=== PATIENT | female | born 1975 | race Caucasian/White ===

== ENCOUNTER 2016-07-21 07:52 | Emergency (ER) | payer SELFPAY ==
[2016-07-21 08:06] VITALS: RESP 17; TEMP 97.2
[2016-07-21] MEDS ORDERED: NORMAL SALINE 10 ML SYRINGE FLUSH IVP PRN (08:11)
[2016-07-21] MEDS ORDERED: ONDANSETRON 4 MG/2 ML VIAL IVP ONE (08:11)
[2016-07-21] MEDS ORDERED: Sodium Chloride 0.9% 1,000 ML PRIMARY IV ONE (08:11)
[2016-07-21 08:48] LABS: BASOPHILS # (AUTO) 0.02 10*3/UL; BASOPHILS % (AUTO) 0.3 % (0-1); EOSINOPHILS % (AUTO) 3.3 % (0-8); HEMATOCRIT 38.5 % (37.0-47.0); HEMOGLOBIN 12.8 g/dL (12.0-16.0); IMM GRAN % (AUTO) 0.3 % (0-5); IMM GRAN# (AUTO) 0.02 10*3/UL; LYMPHOCYTES # (AUTO) 1.83 10*3/uL; LYMPHOCYTES % (AUTO) 26.6 % (10-50); MEAN CORPUSCULAR HEMOGLOBIN 30.7 PG (27-31); MEAN CORPUSCULAR HGB CONC 33.2 g/dL (33-37); MEAN PLATELET VOLUME 8.9 FL (7.4-12.2); MONOCYTES % (AUTO) 11.6 % (5-15); NEUTROPHILS # (AUTO) 3.98 10*3/UL; NEUTROPHILS % (AUTO) 57.9 % (50-80); RDW COEFFICIENT OF VARIATION 13.8 % (11.5-14.5); RED BLOOD COUNT 4.17 10^6/uL (4.20-5.40); WHITE BLOOD COUNT 6.88 10^3/uL (4.8-10.8)
[2016-07-21 08:49] LABS: PLATELET MORPHOLOGY COMMENT NORMAL MORPHOLOGY (NORM)
[2016-07-21 09:03] LABS: AMYLASE 34 U/L (30-110); ASPARTATE AMINO TRANSFERASE 18 IU/L (8-39); BILIRUBIN,TOTAL 0.4 mg/dL (0.3-1.2); BLOOD UREA NITROGEN 12 mg/dL (7-22); CALCIUM 8.7 mg/dL (8.7-10.7); CHLORIDE 108 meq/L (98-112); CREATININE 0.6 mg/dL (0.50-1.20); EST GLOMERULAR FILTRATION > 60 (>60 ml/min/1.73m(2)); GLUCOSE 83 mg/dL (78-110); POTASSIUM 3.9 meq/L (3.8-5.2); SODIUM 138 meq/L (135-145); TOTAL PROTEIN 6.4 g/dL (6.1-8.0)
--- NOTE | 2016-07-21 09:16 | PDOC ---
Abdomen/Flank HPI - General Chief Complaint: Abdomen Pain Stated Complaint: abdominal pain Date Seen by Provider: 07/21/16 Time Seen by Provider: 08:00 Source: POSITIVE: Patient Exam Limitations: POSITIVE: No limitations Nurse's Notes Reviewed & Considered: Yes - History of Present Illness Initial Comments: The patient is a 40-year-old female who presents to the emergency room with a 4 day history of periumbilical and lower abdominal pain. She states she has had some associated loose bowel movements. No vomiting. She last ate at 9 PM last night. She states she's not hungry. Last menstrual period was 24 June. No melena, hematochezia, hematemesis, dysuria or hematuria or known fevers. No history of abdominal surgery except for 2 previous sections. No known allergies. Body Location Affected: REPORTS: Abdomen Timing: REPORTS: Gradual, Getting Worse Duration: >24 hours (4 days) Severity: Moderate Quality: REPORTS: "Pain" Abdominal Pain Onset Location: REPORTS: RLQ, LLQ, Periumbilical Abdominal Pain Radiation: REPORTS: No radiation Context: REPORTS: None Modifying Factors: improves with: Nothing Associated Symptoms: REPORTS: Diarrhea. DENIES: Denies symptoms, Back pain, Bloody Emesis, Chest pain, Coffee Grounds Emesis, Chills, Diaphoresis, Fever, Fatigue, Headache, Heartburn, Loss of Appetite, Nausea, Rash, Shortness of breath, Swelling/mass in abdomen, Syncope, Testicular Pain, Vomiting, Weakness, Grossly Bloody Diarrhea, Constipation, Dysuria, Incontinent Stool, Incontinent Urine, Mucous Diarrhea, Difficulty Walking, Dizziness, Light Headedness, Numbness, Other Similar Symptoms Previously: No Recent Care Received: REPORTS: Denies Any Prior Injuries Related to Current Complaint?: No - Patient Home Medications Home Medications: Home Medications Citalopram Hydrobromide [Celexa] 20 mg PO DAILY #30 tab 04/11/15 - Patient Allergies Allergies/Adverse Reactions: Allergies Allergy/AdvReac Type Severity Reaction Status Date / Time No Known Allergies Allergy Verified 07/21/16 07:58 Past Medical History - heen HEENT History: Dentures/Partials Additional HEENT History: upper partial Cardiovascular History: Denies History Respiratory History: Other (please comment) Additional Respiratory History: chronic tobacco abuse Gastrointestinal History: Denies History Genitourinary History: Denies History Endocrine History: Denies History Musculoskeletal History: Denies History Prosthesis or Implant: No Additional Musculoskeletal History: previous leg muscle rip in R leg 05/2014 Neurological History: Other (please comment) Additional Neurological History: chronic headaches Blood Disorders: Denies History Psychiatric History: Depression, Bi Polar Disorder, Schizophrenia, Anxiety Disorders, Other (please comment) Additional Psychiatric History: MANIC DEPRESSIVE History of Sexually Transmitted Diseases: No LMP: 06/24/2016 Obstetrical History: Delivery Additional Obstetrical History: x2 Cancer History: Denies History In Past Year Been Physically Harmed or Verbally Threatened: No (PER PATIENT) History of MDRO: Yes Type of MDRO: MRSA Other Type of MDRO: IN RIGHT LEG WOUND, TREATED WITH ABX History of Other Communicable Diseases: No Tobacco Use: Current Every Day Smoker Alcohol Use: None Substance Use Type: Marijuana Previous Surgical History: Yes Type / Date of Surgery: X2, RIGHT THIGH I&D Anesthesia Reactions: No Malignant Hyperthermia: No Family History of Malignant Hyperthermia: No Significant Family History: No pertinent family hx Past Medical History Reviewed: Reviewed - No Changes ROS - Limitations ROS Limitations: No Limitations Constitution: REPORTS: Denies Symptoms Cardiovascular: REPORTS: Denies Cardiac Symptoms Respiratory: REPORTS: Denies Resp Symptoms Neurological: REPORTS: Denies Neuro Symptoms Gastrointestinal: REPORTS: Abdominal Pain, Nausea, Diarrhea. DENIES: Black Stools, Bloody Stools Endocrine: REPORTS: Denies Symptoms Musculoskeletal: REPORTS: Denies MS Symptoms Genitourinary: REPORTS: Denies Symptoms Eyes: REPORTS: Denies Symptoms ENT: REPORTS: Denies Symptoms Skin: REPORTS: Denies Skin Symptoms Lympathic: REPORTS: Denies Lympathic Symptoms Immunologic: POSITIVE: Denies Symptoms Psychiatric: POSITIVE: Denies Psych Symptoms Abdominal/Flank Pain PE - General Appearance General Appearance: POSITIVE: Alert, Cooperative, No Acute Distress, No Evidence of Trauma - HEENT HEENT: POSITIVE: Head Inspection Nml, Eyes Inspection Nml, Ears Inspection Nml, Nose Inspection Nml, Oral/Dental Inspect. Nml, Pharynx Inspect. Nml, PERRL, EOMI - Neck Neck: POSITIVE: Normal Inspection, No Apparent Injury - Respiratory Respiratory: POSITIVE: No Respiratory Distress, Breath Sounds Normal, Chest Non- Tender - Cardiovascular Cardiovascular: POSITIVE: Regular Rate and Rhythm, Heart Sounds Normal, Equal Pulses, Strong Pulses Peripheral Pulses: Radial (R): 2+, Radial (L): 2+ - Chest Chest: POSITIVE: Non Tender - Abdomen Abdomen: Soft: (All Quadrants), Normal Bowel Sounds: (All Quadrants), No Splenomegaly: (All Quadrants), No Hepatomegaly: (All Quadrants), No Guarding: ( All Quadrants), No Rebound: (All Quadrants), No Palpable Pulse: (All Quadrants) , No Palpabale Mass: (All Quadrants), No Distention: (All Quadrants), No Rigidity: (All Quadrants), Tenderness Noted: (LUQ), (RLQ), (RUQ) Additional Abdominal Details: Abdominal examination shows bowel sounds be present. There is discomfort/pain expressed on palpation over the paraumbilical area and both lower abdominal quadrants, right greater than left. No masses or organomegaly or rebound. - Back Back: POSITIVE: Normal Inspection. 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 test negative. Other labs pending) Lab Results:: Laboratory Results 07/21/16 Range/Units 08:40 WBC 6.88 (4.8-10.8) 10^3/uL RBC 4.17 L (4.20-5.40) 10^6/uL Hgb 12.8 (12.0-16.0) g/dL Hct 38.5 (37.0-47.0) % MCV 92.3 (81-99) FL MCH 30.7 (27-31) PG MCHC 33.2 (33-37) g/dL RDW Std Deviation 45.5 (39-50) fL RDW Coeff of Gee 13.8 (11.5-14.5) % Plt Count 318 (140-350) 10*3/uL MPV 8.9 (7.4-12.2) FL Immature Gran % (Auto) 0.3 (0-5) % Neut % (Auto) 57.9 (50-80) % Lymph % (Auto) 26.6 (10-50) % [place] % (Auto) 11.6 (5-15) % Eos % (Auto) 3.3 (0-8) % Baso % (Auto) 0.3 (0-1) % Immature Gran # (Auto) 0.02 10*3/UL Neut # (Auto) 3.98 10*3/UL Lymph # (Auto) 1.83 10*3/uL [place] # (Auto) 0.80 (0.3-0.8) 10*3/UL Eos # (Auto) 0.23 10*3/UL Baso # (Auto) 0.02 10*3/UL WBC Morphology Comment Normal morphology (NORM) Plt Morphology Comment Normal morphology (NORM) RBC Morph Comment Normal morphology (NORM) Serum HCG, Qual Negative - Patient's Progress Pain Medication Addressed: POSITIVE: Yes, Patient Refused School/Work Release Addressed: POSITIVE: Not Applicable Re-examine Time: 09:00 Re-Examine Comment: Patient reexamined; condition essentially unchanged. Patient still declines analgesia. Care of patient transferred to Dr. Strange at 0900 Status: POSITIVE: Unchanged, Re-Examined - Consult Counseled: POSITIVE: Patient, RE: Lab Results Patient Care Time - Estimated PCT Patient Care Time (In Minutes): 35 Vital Signs - Recent Vital Signs Vital Signs: Vital Signs (Last 8 hours) Temp Pulse Resp BP Pulse Ox 07/21/16 07:52 97.2 F 89 17 109/76 98 - VS Reviewed Vital Signs Reviewed: Yes Discharge Clinical Impression: Abdominal pain Condition: Stable Care Transferred To: Dr. Strange, 0900
[2016-07-21 09:27] LABS: BILIRUBIN,URINE SMALL (NEG); CLARITY,URINE CLOUDY (CLEAR); GLUCOSE, URINE (UA) NEGATIVE (NEG); LEUKOCYTE ESTERASE ,URINE NEGATIVE (NEG); NITRATE,URINE NEGATIVE (NEG); OCCULT BLOOD,URINE LARGE (NEG); PROTEIN,URINE >300 mg/dl (NEG); UROBILINOGEN,URINE 0.2 EU/dL (0.2)
[2016-07-21 09:29] LABS: URINE SAMPLE TYPE CATH SPECIMEN
[2016-07-21 09:33] LABS: RBC,URINE >100 /hpf; WBC,URINE 0-2
[2016-07-21 09:34] LABS: BACTERIA,URINE FEW; SQUAMOUS EPITHELIAL CELL,UR MODERATE; URINE SPECIFIC GRAVITY - MAN 1.026
--- NOTE | 2016-07-21 10:32 | DI ---
CT ABDOMEN SCAN WITHOUT AND WITH IV CONTRAST, 07/21/2016 8:12 AM : Clinical History: Abdominal pain. Previous Exam: 06/06/2013. Scans are performed from the lower lung bases through the liver and kidneys without and with IV contr ast. Sagittal and coronal images are generated. 95 ml of Isovue 300 was injected IV. No rectal or ora l contrast was ordered. The lung bases are clear. There is hepatomegaly with the liver itself appears normal. The gallbladder is grossly normal. There is no abnormality of the spleen, pancreas, and adrenal glands. Both kidneys are normal in size, shape, position and contour. There is no hydronephrosis or hydroureter. No renal or ureteral calculi are present. There are no abnormal retrocrural or periaortic nodes. There is no ascites. READING: Hepatomegaly. The exam is otherwise normal. CT PELVIS SCAN WITHOUT AND WITH IV CONTRAST, 07/21/2016 8:12 AM: Clinical History: See above. Previous Exam: 06/06/2013. Scans are performed from just superior to the umbilicus to the symphysis pubis without and with IV co ntrast. This is the same bolus of IV contrast used for the CT scans of the abdomen. Scans through the lower abdomen and pelvis show no masses or abnormal fluid collections. There is no adenopathy. The appendix is normal. The small bowel, terminal ileum, and ileocecal valve are intact. The colon is also normal. There are no hernias. The uterus and both ovaries are normal. READING: Normal CT scan of the pelvis.
[2016-07-21] MEDS ORDERED: KETOROLAC 30 MG/1 ML VIAL IVP ONE (10:36)
--- NOTE | 2016-07-21 15:35 | PDOC ---
Transfer of Care - Care Accepted Time Care Transferred: 09:00 Report from Transferring Physician Received: Yes (Dr. Tillman) MDM / ED Course: The patient is a 40-year-old female who had presented to the emergency room this morning with complaints of right upper and mid abdominal pain that started 4 days ago. She has associated nausea however has not had any vomiting. She states that her symptoms are worsened after eating. She denies previous abdominal surgery other than 2. She has not had any associated fevers or chills or change in bowel habits. She does report that she has had some blood in her urine for the past couple of days. She denies any burning with urination however does report increased frequency. Dr. Tillman had initially ordered blood work as well as a CT scan of the abdomen and pelvis. Her blood work was all essentially unremarkable and CT was pending at the time care was transferred. The patient had declined any pain medication after Dr. Tillman's evaluation. She did receive Zofran for nausea which she states did help some. Home Medications: Home Medications Citalopram Hydrobromide [Celexa] 20 mg PO DAILY #30 tab 04/11/15 Ciprofloxacin HCl [Cipro HCl] 500 mg PO Q12H #14 tab 07/21/16 Naproxen 500 mg PO Q12H PRN #20 tab 07/21/16 Allergies/Adverse Reactions: Allergies No Known Allergies Allergy (Verified 07/21/16 07:58) Vital Signs Reviewed: Yes Nurse's Notes Reviewed & Considered: Yes - Pending Patient Care Items Pending Patient Care Items: POSITIVE: Labs (urinalysis), CT / MRI Results - Re-Evaluation of Patient Disposition of Patient: POSITIVE: Discharged Counseled: POSITIVE: Patient, RE: Lab Results, RE: Radiology Results, RE: DX, RE : Need for F/U Clinical Impression Documented: Yes - Results Reviewed Lab Results Reviewed by Me: Yes Lab Results: Laboratory Results 07/21/16 07/21/16 Range/Units 08:40 09:12 WBC 6.88 (4.8-10.8) 10^3/uL RBC 4.17 L (4.20-5.40) 10^6/uL Hgb 12.8 (12.0-16.0) g/dL Hct 38.5 (37.0-47.0) % MCV 92.3 (81-99) FL MCH 30.7 (27-31) PG MCHC 33.2 (33-37) g/dL RDW Std Deviation 45.5 (39-50) fL RDW Coeff of Gee 13.8 (11.5-14.5) % Plt Count 318 (140-350) 10*3/uL MPV 8.9 (7.4-12.2) FL Immature Gran % (Auto) 0.3 (0-5) % Neut % (Auto) 57.9 (50-80) % Lymph % (Auto) 26.6 (10-50) % [place] % (Auto) 11.6 (5-15) % Eos % (Auto) 3.3 (0-8) % Baso % (Auto) 0.3 (0-1) % Immature Gran # (Auto) 0.02 10*3/UL Neut # (Auto) 3.98 10*3/UL Lymph # (Auto) 1.83 10*3/uL [place] # (Auto) 0.80 (0.3-0.8) 10*3/UL Eos # (Auto) 0.23 10*3/UL Baso # (Auto) 0.02 10*3/UL WBC Morphology Comment Normal morphology (NORM) Plt Morphology Comment Normal morphology (NORM) RBC Morph Comment Normal morphology (NORM) Sodium 138 (135-145) meq/L Potassium 3.9 (3.8-5.2) meq/L Chloride 108 (98-112) meq/L Carbon Dioxide 21 L (23-33) meq/L Anion Gap 9 (5-20) BUN 12 (7-22) mg/dL Creatinine 0.6 (0.50-1.20) mg/dL Estimated GFR > 60 (>60 ml/min/1.73m(2)) BUN/Creatinine Ratio 20.00 (6-20) Glucose 83 (78-110) mg/dL Calculated Osmolality 284.0 (267-292) mOsm/kg Calcium 8.7 (8.7-10.7) mg/dL Total Bilirubin 0.4 (0.3-1.2) mg/dL AST 18 (8-39) IU/L ALT 22 (9-52) IU/L Alkaline Phosphatase 48 (38-126) IU/L Total Protein 6.4 (6.1-8.0) g/dL Albumin 3.7 (3.5-4.8) g/dL Globulin 2.7 (2.50-4.10) g/dL Albumin/Globulin Ratio 1.30 (1.3-2.0) mg/g Amylase 34 (30-110) U/L Lipase 59 (23-300) IU/L Serum HCG, Qual Negative Ur Collection Type Cath specimen Urine Color Red Urine Clarity Cloudy (CLEAR) Urine pH 5.0 (5.0-8.5) Ur Specific [place] >=1.030 (1.005-1.030) U Specif Grav (Refrac) 1.026 Urine Protein >300 (NEG) mg/dl Urine Glucose (UA) Negative (NEG) mg/dL Urine Ketones Trace (NEG) Urine Occult Blood Large H (NEG) Urine Nitrate Negative (NEG) Urine Bilirubin Small (NEG) Urine Urobilinogen 0.2 (0.2) EU/dL Ur Leukocyte Esterase Negative (NEG) Urine RBC >100 (NONE) /hpf Urine WBC 0-2 (NONE) Ur Squamous Epith Cells Moderate (NONE) Ur Renal Epithelial Cell None (NONE) Urine Crystals None Urine Bacteria Few (NONE) Urine Casts None (NONE) Urine Mucus Few (NONE) Urine Trichomonas None (NONE) Urine Yeast None (NONE) Ur Culture Indicated? Culture set - Consult Recommendations:: CT scan of the abdomen and pelvis revealed hepatomegaly however was essentially normal otherwise per radiologist. The exact etiology of her pain is unclear. Her urine does show significant hematuria and culture is pending. She will be treated with Cipro 500 mg twice a day for 7 days. She did not want any narcotic pain medication however did receive Toradol here in the emergency room and will be given a prescription for naproxen as well. Her gallbladder appeared grossly normal on this CT scan however this is still a possible cause. She is advised return to the emergency room if increased pain, vomiting or dehydration, fever, worsening or change in symptoms. She is advised follow-up with primary care in 3-5 days. Patient Care Time - Estimated PCT Patient Care Time (In Minutes): 20 Vital Signs - Recent Vital Signs Vital Signs: Vital Signs (Last 8 hours) Temp Pulse Resp BP Pulse Ox 07/21/16 07:52 97.2 F 89 17 109/76 98 - VS Reviewed Vital Signs Reviewed: Yes Discharge Clinical Impression: Abdominal pain, Hematuria, Enlarged liver Condition: Stable Prescriptions / Orders: Ciprofloxacin HCl [Cipro HCl] 500 mg PO Q12H #14 tab Naproxen 500 mg PO Q12H PRN #20 tab PRN Reason: Pain Patient Instructions Given at Discharge: Hematuria (ED), Acute Abdominal Pain ( ED) Additional Instructions: The CAT scan did not show any obvious cause for your current abdominal pain. The CAT scan did show that your liver is somewhat enlarged however your blood tests on your liver were all normal. The urine did show significant amount of blood. It is possible that you may have passed a kidney stone or have some component of kidney infection as a cause of the pain. You have been started on Cipro 500 mg twice a day for 7 days. In addition your been prescribed naproxen 500 mg every 12 hours as needed for pain, take with food. Return to the emergency room if increased pain, fever, difficulty urinating, any worsening or change in symptoms. Recommend follow-up with Dr. Del Valle in 7-10 days. You will need a repeat urinalysis to ensure that the blood in the urine has cleared. Follow Up With: SHELTON DEL VALLE [Primary Care Provider] -
== END 2016-07-21 11:50 | disposition home or self-care (01) ==
LOC: ER 07:52
DX: R10.33 Periumbilical pain (principal); R10.32 Left lower quadrant pain; R10.31 Right lower quadrant pain
CPT/HCPCS: 74178; 80053; 81001; 81003; 82150; 83690; 84703; 85025; 87077; 87088; 87186 ×2; 96361; 96374; 96375; 99283 ×2; J1885; J2405; J7030

== ENCOUNTER → 2016-10-31 | Outpatient (CLI) | payer SELFPAY ==
--- NOTE | 2016-10-31 12:18 | DI ---
CT ABD W/CN AND PELVIS W/CN,10/31/2016 8:54 AM: Clinical History: Right upper quadrant pain. Previous Exam: None at this facility. Findings: Multiple helically acquired CT images are obtained through the abdomen and pelvis following intraveno us administration of 60 mL of Isovue 300, and demonstrate clear lung bases. The liver, gallbladder, spleen, pancreas, kidneys and adrenals are unremarkable. The appendix is normal. There is a large left ovarian cyst measuring 3.5 cm in long axis. There is no free air nor free fluid. There is no evidence of hydronephrosis nor nephrolithiasis. Skeletal structures are unremarkable. The urinary bladder is unremarkable. Large and small bowel loops are not well evaluated but are grossly normal. IMPRESSION: NO ACUTE DISEASE. 3.5 CM LEFT ADNEXAL CYST.
== END ==
LOC: CT 08:49
PROVIDERS: ATTEND Family Medicine
DX: R10.11 Right upper quadrant pain (principal); N83.292 Other ovarian cyst, left side; F17.200 Nicotine dependence, unspecified, uncomplicated
CPT/HCPCS: 74177